=== PATIENT | male | born 1970 | race Asian ===

== ENCOUNTER 2017-09-03 19:19 | Inpatient (IN) | payer OTHER ==
[~2017-09-03] VITALS: Ht 167.6 cm; Wt 74.8 kg
[2017-09-03 19:49] LABS: BASOPHILS # (AUTO) 0.1 /CMM (0.0-0.2); EOSINOPHILS % (AUTO) 4.7 % (0.0-6.0); HEMATOCRIT 39 % (39-51); HEMOGLOBIN 13.6 g/dL (13.5-17.5); LYMPHOCYTES # (AUTO) 2.7 /CMM (0.8-4.8); LYMPHOCYTES % (AUTO) 35.3 % (20.0-44.0); MEAN CORPUSCULAR HGB CONC 35 g/dl (31.0-36.0); MEAN CORPUSCULAR VOLUME 84 fL (80-96); MONOCYTES # (AUTO) 0.8 /CMM (0.1-1.30); MONOCYTES % (AUTO) 11.1 % (2.0-12.0); NEUTROPHILS # (AUTO) 3.5 /CMM (1.8-8.9); NEUTROPHILS % (AUTO) 47.9 % (43.0-81.0); PLATELET COUNT (AUTO) 460 /CMM (150-450); RDW COEFFICIENT OF VARIATION 13.6 (11.5-15.0); RED BLOOD CELL COUNT(AUTO) 4.68 MIL/uL (4.5-6.0); WHITE BLOOD COUNT (AUTO) 7.5 K/uL (4.3-11.0)
[2017-09-03 19:57] LABS: CALCIUM, SERUM 8.9 mg/dL (8.5-10.1); CARBON DIOXIDE 30 mmol/L (21-32); CHLORIDE 104 mmol/L (98-107); CREATININE 1.1 mg/dL (0.6-1.3); GLUCOSE 127 mg/dL (74-106); POTASSIUM 3.6 mmol/L (3.5-5.1); SODIUM SERUM 141 mmol/L (136-145); UREA NITROGEN, BLOOD 19 mg/dL (7-18)
[2017-09-03 20:10] LABS: ALANINE AMINOTRANSFERASE 22 U/L (12-78); ALBUMIN 3.7 g/dL (3.4-5.0); ALCOHOL, BLOOD < 3 mg/dL (0-0); ALKALINE PHOSPHATASE 61 U/L (46-116); ASPARTATE AMINOTRANSFERASE 17 U/L (15-37); BILIRUBIN,DIRECT 0.1 mg/dL (0.0-0.2); BILIRUBIN,TOTAL 0.4 mg/dL (0.2-1.0); SALICYLATE 3.5 mg/dL (2.8-20.0); TOTAL PROTEIN, SERUM 7.3 g/dL (6.4-8.2)
[2017-09-03 20:11] LABS: ACETAMINOPHEN 0 ug/ml (10-30)
[2017-09-03 20:51] LABS: APPEARANCE,URINE Clear (CLEAR); BILIRUBIN,URINE SMALL (NEGATIVE); BLOOD, URINE Negative Ery/uL (NEGATIVE); COLOR,URINE Yellow (YELLOW); KETONES,URINE 15 (NEGATIVE); LEUKOCYTE ESTERASE ,URINE Negative (NEGATIVE); NITRITE, URINE Negative (NEGATIVE); PROTEIN,URINE 30 mg/dl (NEGATIVE); UGLUCOSE Negative (NEGATIVE); UROBILINOGEN,URINE 0.2 EU/dL (0.2)
[2017-09-03 21:03] LABS: BACTERIA,URINE Rare /HPF (None Seen); MUCUS,URINE Few /LPF (None Seen); RBC,URINE NONE SEEN /HPF (0-2); SQUAMOUS EPITHELIAL CELL,UR Rare /HPF (None Seen); WBC,URINE 0-2 /HPF (0-3)
--- NOTE | 2017-09-03 21:30 | NUR ---
[facility] RECORD TECHNICIAN AT BS FOR EVAL.
--- NOTE | 2017-09-03 21:40 | NUR ---
MEDICAL CLEARANCE FOR GPS ADMISSION. PT STATES SI, NO PLAN. VSS. NAD NOTED. SAFETY AND COMFORT MEASURES PROVIDED. WILL MONITOR.
--- NOTE | 2017-09-03 23:29 | NUR ---
REPORT GIVEN TO VEENA MARTINEZ FOR GPS.
[2017-09-03 23:50] VITALS: BP 124/73
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
[2017-09-04] MEDS ORDERED: ACETAMINOPHEN 325 MG TABLET PO PRN (00:30)
[2017-09-04] MEDS ORDERED: LORAZEPAM 0.5 MG TABLET PO PRN (00:30)
[2017-09-04] MEDS ORDERED: MAGNESIUM HYDROXIDE 30 ML UDC PO PRN (00:30)
[2017-09-04] MEDS ORDERED: MAG HYDROX/AL HYDROX/SIMETH 30 ML UDC PO PRN (00:30)
[2017-09-04] MEDS ORDERED: DIAZ5TAB4 PO (07:45)
[2017-09-04 08:00] VITALS: BP 110/68
[2017-09-04] MEDS: OLANZAPINE 5 MG/TAB.RAPDIS PO SCH ×2 (10:03→21:01)
[2017-09-04] MEDS: NICOTINE PATCH (21MG) 21 MG PATCH.TD24 TD SCH (10:03)
--- NOTE | 2017-09-04 16:06 | NUR ---
UR Update: ALONDRA left clinicals (voicemail) for SANA PARSON MGR WITH [facility]. DIRECT LINE [phone] FAX# [phone]. [facility] PREFERRED. AUTHORIZATION#[id number]. yarn worker will follow-up.
[2017-09-04 16:12] VITALS: BP 117/66
[2017-09-04 20:00] VITALS: BP 108/67
[2017-09-04] MEDS: TEMAZEPAM 7.5 MG CAPSULE PO PRN (21:01)
--- NOTE | 2017-09-04 21:02 | NUR ---
TEMAZEPAM 7.5 MG CAP 1 PO GIVEN FOR SLEEP.
[2017-09-05 07:58] LABS: CHOLESTEROL 200 mg/dL (<200); HDL CHOLESTEROL 61 mg/dL (40-60); LDL 138 mg/dL (0-99); TRIGLYCERIDES 187 mg/dL (30-150)
[2017-09-05 08:33] VITALS: BP 121/78
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
[2017-09-05] MEDS: OLANZAPINE 5 MG/TAB.RAPDIS PO SCH ×2 (08:54→20:35)
[2017-09-05] MEDS: NICOTINE PATCH (21MG) 21 MG PATCH.TD24 TD SCH (08:57)
--- NOTE | 2017-09-05 11:10 | NUR ---
Initial Discharge Note: Patient lives at home with his family [address] [place] [address]. ([phone]). Per patient, he would like to return home upon discharge. Patient spoke to patient's Geovanna Hodgson ([phone]) who confirmed that she would like patient to return home upon discharge. food service utility worker will help form a safe and proper discharge.
--- NOTE | 2017-09-05 16:05 | NUR ---
RN-CO: Dr. Bailey made aware that patient's Geovanna membreno wants to talk to him. stated " I will call her."
[2017-09-05 16:41] VITALS: BP 130/68
[2017-09-05 20:00] VITALS: BP 129/82
[2017-09-05] MEDS: TEMAZEPAM 7.5 MG CAPSULE PO PRN (20:36)
--- NOTE | 2017-09-05 20:37 | NUR ---
GPS RN NOTE: TEMAZEPAM 7.5MG PO GIVEN FOR INABILITY TO SLEEP AND PATIENT REQUESTED. WILL CONTINUE TO MONITOR [id number] FOR SAFETY
--- NOTE | 2017-09-06 07:30 | NUR ---
RECEIVED PT. ALERT.MIROSLAVA,PLANS FOR DISCHARGE TODAY.
[2017-09-06 08:00] VITALS: BP 122/78
[2017-09-06] MEDS: OLANZAPINE 5 MG/TAB.RAPDIS PO SCH (08:39)
[2017-09-06] MEDS: NICOTINE PATCH (21MG) 21 MG PATCH.TD24 TD SCH (08:39)
--- NOTE | 2017-09-06 09:00 | NUR ---
DR. MARTIN GAVE AN ORDER TO D/C HOLD AND D/C HOME AND TO FOLLOW UP WITH PSYCH AND MEDICAL DOCTORS. MADE AWARE OF THE DISCHARGE AND SAID OK FOR DISCHARGE. KAYLA CUMMINGS MADE AWARE.
--- NOTE | 2017-09-06 11:15 | NUR ---
PT. DISCHARGED UNDER ORDER OF DR. MARTIN.DTR. AWARE OF DC INSTRUCTIONS AND RX.SON AND PT,S MOTHER PICKING UP PT. PT. DENIES SUICIDAL,OR HOMICIDAL IDEATION.ESCORTED TO LOBBY BY FAMILY AND BOX GLUER.ALL PAPERS SIGNED INCLUDING BELONGING SHEET.
--- NOTE | 2017-09-06 17:59 | NUR ---
Social Work Discharge Note: Pt. was discharged home today with his who picked him and took him home in their personal vehicle. Both were agreeable to discharge. Pt. has a history of methamphetamine, marijuana and cannabis abuse.He was given referrals to [facility] [phone], [facility] [phone] and [facility] Outpatient [phone]. Utilization Review Note: Discharge review was left for Phillip Mirta [phone] at 1806 on 09/06/17. Authorization number: [id number]. This social secretary also asked that Phillip call patient with additional referrals for dual diagnosis since he was not available at time of patient's discharge.
--- NOTE | 2017-09-06 18:10 | NUR ---
Social work Discharge Note Update: Pt. is a smoker and so was also referred to Xi[facility] Sotelo, [address] [facility], [facility] [address] ([phone]). He was also0 Addendum: 09/06/17 at 1819 by WINDY CANTU Additional Referrals for Smoking Cessation given to patient were Xiomy Byers [phone]. Per Francesco all meetings are on online now. Patient can take weekly sessions and there is homework in between sessions.[facility] location has closed and been replaced by all online meetings.
--- NOTE | 2017-09-06 18:21 | NUR ---
Social Work Discharge Note: Spoke with at 1810 and she took the [employer] Phone number [phone]. She said that she is a case resource manager for [employer] and has her own referrals for outpatient treatment for pt. she said her was doing well after discharge and that she had no further questions.
--- NOTE | 2017-09-08 13:13 | NUR ---
Utilization Review Note: Left voicemail message for Phillip [place] foster care case manager with discharge clinical information and referrals given [phone] at 1328. Authorization number [id number]. 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 Also provided Phillip with the referrals given to patient but we are not clear they are [facility] contracted. [facility] [phone] were not sure if they were contracted or not. Their hospital does have a contract.
--- NOTE | 2017-09-19 14:26 | NUR ---
ALONDRA contacted Aden Hodgson ( in order to complete 15/30 day substance abuse post discharge form. ALONDRA made 3 attempts however was unsuccessful. On the first attempt, SW was informed by pts , Geovanna that pt was unavailable and to call back after 30mins. On the 2nd and 3rd attempts phone rang for a long time before being picked up and hung up. Form was completed appropriately.
== END 2017-09-06 11:15 | disposition home or self-care (01) | DRG 885 ==
LOC: ER 19:25 → GPS 23:17
PROVIDERS: ADMIT Psychiatry & Neurology Psychiatry; ATTEND Psychiatry & Neurology Psychiatry
DX: F29 Unspecified psychosis not due to a substance or known physiological condition (principal); F39 Unspecified mood [affective] disorder; R45.851 Suicidal ideations; F32.9 Major depressive disorder, single episode, unspecified; F17.200 Nicotine dependence, unspecified, uncomplicated; F41.9 Anxiety disorder, unspecified; F19.19 Other psychoactive substance abuse with unspecified psychoactive substance-induced disorder
CPT/HCPCS: 36415; 80048-TC; 80061-TC; 80076-TC; 80305; 81000-TC; 82565-TC; 85025-TC; 87081-TC; A4606; G0480; Z7610